=== PATIENT | female | born 1985 ===

== ENCOUNTER 2024-10-18 14:41 | Emergency (ER) | payer MEDICAID ==
[~2024-10-18] VITALS: Ht 167.6 cm; Wt 64.2 kg
[2024-10-18 14:47] VITALS: BP 126/67; PULSE 78; RESP 18; TEMP 97.8; O2SAT 100
== END 2024-10-18 16:41 | disposition left against medical advice (07) ==
LOC: ER 14:43
DX: R20.0 Anesthesia of skin (principal); Z53.21 Procedure and treatment not carried out due to patient leaving prior to being seen by health care provider